=== PATIENT | female | born 1975 | race Caucasian/White ===

== ENCOUNTER 2017-03-03 05:38 | Day surgery (SDC) | payer OTHER ==
[~2017-03-03] VITALS: Ht 157.5 cm; Wt 61.7 kg
[2017-03-03] MEDS ORDERED: VANCOMYCIN PER PHARMACY MC STA (06:08)
[2017-03-03] MEDS ORDERED: BUPIVACAINE/PF 0.5% ONE (06:14)
[2017-03-03] MEDS ORDERED: LACTATED RINGERS 1,000 ML IV SCH ×2 (06:15→07:00)
[2017-03-03] MEDS ORDERED: LIDOCAINE/PF 1%, 30ML ONE (06:15)
[2017-03-03 06:16] VITALS: BP 105/68
[2017-03-03] MEDS ORDERED: LIDOCAINE 1%, 2ML SQ PRN (06:30)
[2017-03-03 06:37] LABS: HCG UR OBC PASS
[2017-03-03] MEDS ORDERED: MIDAZOLAM 1 MG/ML, 2ML ONE ×2 (06:44)
[2017-03-03] MEDS ORDERED: FENTANYL PF 100 MCG/2ML ONE ×2 (06:44→06:45)
[2017-03-03] MEDS ORDERED: VANCOMYCIN PMX 1GM/200ML 200 ML IV ONE (07:00)
[2017-03-03] MEDS ORDERED: CEFAZOLIN 1,000 MG ONE (07:03)
[2017-03-03] MEDS ORDERED: KETOROLAC 30 MG/1 ML ONE (07:03)
[2017-03-03] MEDS ORDERED: PROPOFOL 10 MG/ML, 20ML ONE (07:03)
[2017-03-03] MEDS ORDERED: ONDANSETRON 2MG/ML, 2ML ONE (07:03)
[2017-03-03] MEDS ORDERED: DEXAMETHASONE 4 MG/ML, 1ML ONE (07:03)
[2017-03-03] MEDS ORDERED: FENTANYL PF 100 MCG/2ML IV PRN (07:30)
[2017-03-03] MEDS ORDERED: OXYcodone 5 MG/5 ML ORAL.SOL UDC PO PRN (07:30)
[2017-03-03] MEDS ORDERED: hydrALAzine 20 MG/ML, 1ML IV PRN (07:30)
[2017-03-03] MEDS ORDERED: HYDROmorphone 1 MG/ML, 1ML IV PRN (07:30)
[2017-03-03] MEDS ORDERED: ONDANSETRON 2MG/ML, 2ML IVPush PRN (07:30)
[2017-03-03] MEDS ORDERED: PROMETHAZINE 25 MG/ML, 1ML IV PRN (07:30)
[2017-03-03] MEDS ORDERED: LABETALOL 5MG/ML, 20ML IV PRN (07:30)
[2017-03-03] MEDS ORDERED: MEPERIDINE/PF 25MG/0.5ML IVPush PRN (07:30)
[2017-03-03] MEDS ORDERED: ACETAMINOPHEN 325 MG TABLET PO PRN (07:30)
[2017-03-03] MEDS ORDERED: ACETAMINOPHEN 650 MG/20.3 ML UDC ONE (08:20)
[2017-03-03] MEDS ORDERED: OXYcodone 5 MG/5 ML ORAL.SOL UDC ONE (08:20)
== END 2017-03-03 09:45 ==
LOC: OUT 05:38
PROVIDERS: ATTEND Orthopaedic Surgery
DX: G56.02 Carpal tunnel syndrome, left upper limb (principal); Z88.0 Allergy status to penicillin; Z91.018 Allergy to other foods; Z87.39 Personal history of other diseases of the musculoskeletal system and connective tissue
CPT/HCPCS: 64721; 81025; J0690; J1100; J1885; J2250; J2405; J2704; J3010; J3490; J7120